=== PATIENT | male | born 1980 | race Caucasian/White ===

== ENCOUNTER → 2020-05-23 10:39 | Outpatient (CLI) | payer BC, SELFPAY ==
--- NOTE | 2020-05-23 11:03 | MRI_ITS ---
STUDY: MRI LUMBAR SPINE WITHOUT CONTRAST REASON FOR EXAM: Male, 40 years old. twisted and felt pain into R buttock into R leg TECHNIQUE: Standardized fat and water weighted pulse sequences were obtained in the sagittal and axial planes. COMPARISON: None FINDINGS: T12-L1: Normal endplates. Normal disc height, hydration and morphology. Normal bilateral facet joints. Normal central canal and bilateral lateral recesses. Normal bilateral intervertebral neural foramina. There is straightening of the normal lumbar lordosis. There is no substantial scoliosis. Normal conus medullaris that terminates at the T12/L1. L1-2: Normal endplates. Normal disc height, hydration and morphology. Normal bilateral facet joints. Normal central canal and bilateral lateral recesses. Normal bilateral intervertebral neural foramina. L2-3: Normal endplates. Normal disc height, hydration and morphology. Normal bilateral facet joints. Normal central canal and bilateral lateral recesses. Normal bilateral intervertebral neural foramina. L3-4: Normal endplates. Normal disc height, hydration and morphology. Normal bilateral facet joints. Normal central canal and bilateral lateral recesses. Normal bilateral intervertebral neural foramina. L4-5: Normal endplates. Normal disc height, hydration and morphology. Normal bilateral facet joints. Normal central canal and bilateral lateral recesses. Normal bilateral intervertebral neural foramina. L5-S1: Large (12 mm) is right paracentral and preforaminal disc extrusion produces moderate spinal stenosis, severe right lateral recess stenosis with effacement of the right S1 and S2 nerve roots but no neural foraminal stenosis. Normal visualized sacral ala. Normal visualized paraspinous soft tissue structures. MRI/Spine Lumbar (Routine) IMPRESSION: Large right paracentral and preforaminal disc extrusion at L5/S1 producing moderate spinal stenosis and severe right lateral recess stenosis with effacement of the right S1 and S2 nerve roots per Electronically Signed: Connor Coker MD at 13:17 EST Tel , Service support ,
== END ==
DX: M99.03 Segmental and somatic dysfunction of lumbar region (principal); S33.5XXA Sprain of ligaments of lumbar spine, initial encounter; M51.16 Intervertebral disc disorders with radiculopathy, lumbar region
CPT/HCPCS: 72148